=== PATIENT | female | born 1995 | race Two or more races ===

== ENCOUNTER 2024-01-23 17:55 | Outpatient (REF) | payer MEDICAID, SELFPAY ==
[2024-01-24 11:39] LABS: CT PCR DETECTED (Not Detect.); NG PCR NOT DETECTED (Not Detect.)
[2024-01-24 14:16] LABS: Bacterial Vaginosis PCR POSITIVE (Negative); Candida Group PCR NOT DETECTED (Not Detect); Candida glab krusei PCR NOT DETECTED (Not Detect); Trichomonas vaginalis PCR NOT DETECTED (Not Detect)
== END 2024-01-23 17:56 | disposition home or self-care (01) ==
LOC: HO.HHCLNP 17:55
PROVIDERS: Visit Provider Advanced Practice Midwife
DX: Z12.4 Encounter for screening for malignant neoplasm of cervix (principal); N89.8 Other specified noninflammatory disorders of vagina
CPT/HCPCS: 0352U; 87491; 87591; 88175

== ENCOUNTER 2024-03-05 09:31 | Outpatient (REF) | payer MEDICAID, SELFPAY ==
[2024-03-05 11:19] LABS: Hematocrit 40.5 % (37.0-47.0); Hemoglobin 13.9 g/dl (12.0-16.0); Mean Corpuscular HGB Conc 34.3 g/dl (31.0-35.0); Mean Corpuscular Hemoglobin 31.1 pg (27.0-33.0); Mean Corpuscular Volume 90.6 fL (80.0-98.0); Platelet Count 173 X10*3/uL (160-400); Red Blood Count 4.47 X10*6/uL (4.20-5.50); Red Cell Distribution Width 12.5 % (11.0-16.0); White Blood Count 5.2 X10*3/uL (4.8-10.8)
[2024-03-05 11:40] LABS: Estimated Average Glucose 100 mg/dL; Hemoglobin A1C 118.6176 umol/L; Hemoglobin A1c % 5.1 % (<6.0); Total Hemoglobin (HGBA1C) 3668.3933 umol/L
[2024-03-05 11:56] LABS: Alanine Aminotransferase 16 U/L (0-31); Albumin Level 4.2 g/dL (3.5-5.0); Alkaline Phosphatase 37 U/L (39-117); Anion Gap 11 (12-20); Aspartate Amino Transferase 18 U/L (5-31); Bilirubin Total 0.5 mg/dL (0.0-1.0); Blood Urea Nitrogen 8 mg/dL (9-16); Calcium 9.1 mg/dL (8.4-10.2); Carbon Dioxide 24 mmol/L (22-29); Chloride 105 mmol/L (96-108); Estimated Glomerular Filt Rate > 60; Glucose Random 86 mg/dL (60-115); Potassium 3.5 mmol/L (3.3-5.1); Sodium 136 mmol/L (135-145); Total Protein 7.5 g/dL (6.5-8.0)
[2024-03-05 12:16] LABS: TSH reflex Free T4 2.23 uIU/mL (0.32-4.0)
[2024-03-05 14:21] LABS: CT PCR NOT DETECTED (Not Detect.); NG PCR NOT DETECTED (Not Detect.)
[2024-03-06 09:11] LABS: HBS Num1 7.56 mIU/mL (0-7.99); HBc Num1 0.12 S/CO (0.00-0.79); HBsAGNum1 0.31 S/CO (0.00-0.99); HIV AB/AG Nonreactive (Nonreactive); HIV Num 1 0.05 S/CO (0.00-0.99); Hepatitis B Core Antibody Nonreactive (Nonreactive); Hepatitis B Surface Antigen Negative (Negative); ~HepC Num1 0.91 S/CO (0.00-0.79); ~Hepatitis B Surface Antibody NONREACTIVE (Nonreactive)
[2024-03-06 09:12] LABS: Syphilis Screen Nonreactive (Nonreactive)
[2024-03-06 10:07] LABS: ~HepC Num2 0.96; ~HepC Num3 0.93; ~Hepatitis C Antibody GRAYZONE (Nonreactive)
[2024-03-07 17:23] LABS: HCV Log PCR <1.18 NOT DETECTED Log IU/mL (NOT DETECTED); HepC Viral Load <15 NOT DETECTED IU/mL (NOT DETECTED)
== END 2024-03-05 09:32 | disposition home or self-care (01) ==
LOC: HO.HHCL 09:31
PROVIDERS: Visit Provider Student in an Organized Health Care Education/Training Program
DX: Z00.00 Encounter for general adult medical examination without abnormal findings (principal)
CPT/HCPCS: 36415; 80053; 83036; 84443; 85027; 86704; 86706; 86780; 86803; 87340; 87389; 87491; 87522; 87591

== ENCOUNTER 2024-03-08 12:41 | Outpatient (REF) | payer MEDICAID, SELFPAY ==
[2024-03-08 14:46] LABS: HCG Quantitative 125552 mIU/mL
== END 2024-03-08 12:42 | disposition home or self-care (01) ==
LOC: HO.HHCL 12:41
PROVIDERS: Visit Provider Student in an Organized Health Care Education/Training Program
DX: N92.6 Irregular menstruation, unspecified (principal)
CPT/HCPCS: 36415; 84702

== ENCOUNTER 2024-04-18 13:57 | Outpatient (REF) | payer MEDICAID, SELFPAY ==
--- NOTE | ~2024-04-18 | US_ITS ---
EXAMINATION: US , LIMITED CLINICAL INFORMATION: Spotting and COMPARISON: None available. TECHNIQUE: Limited ultrasound is performed for viability. FINDINGS: A gestational sac is present and a pole is identified. Normal heart beat of 161 bpm was present. The fetus was active during the course of the exam. The placenta was posterior without evidence of placenta previa. [place]-rump length was 6.98 cm corresponding to gestational age of 13 weeks 2 days. Maternal ovaries appeared normal measuring 2.2 x 1.5 x 2.3 cm on the right and 3.0 x 1.4 x 2.5 cm on the left. No free fluid seen. US/US OB limited IMPRESSION: Life fetus mean gestational age best estimated at 13 weeks 2 days. No evidence of placenta previa. Electronically signed by: Jayesh Pfeiffer MD 04/22/2024 12:16 PM TIMO CASTILLO
== END 2024-04-18 13:58 | disposition home or self-care (01) ==
LOC: HO.US 13:57
PROVIDERS: Visit Provider Advanced Practice Midwife
DX: O26.851 Spotting complicating pregnancy, first trimester (principal); Z3A.11 11 weeks gestation of pregnancy
CPT/HCPCS: 76815

== ENCOUNTER 2025-01-29 22:40 | Emergency (ER) | payer MEDICAID, SELFPAY ==
--- NOTE | ~2025-01-29 | XR_ITS ---
CLINICAL HISTORY: cough, shortness of breath 2 view chest x-ray Comparison: None provided Findings: The lungs are clear. Heart size is normal. No acute fracture. IMPRESSION: 1. No acute findings. This document has been electronically signed by: Brayden Briseno MD on 01/29/2025 23:53:41
[2025-01-29 22:44] VITALS: BP 119/73; PULSE 87; RESP 18; TEMP 36.7; O2SAT 97; BMI 26.5
[2025-01-29 23:29] VITALS: BP 113/86; PULSE 79; RESP 16; O2SAT 100
[2025-01-29 23:47] LABS: Resp Syncy Virus RNA Qual PCR NEGATIVE (Negative); SARS COV2 PCR INHOUSE NEGATIVE (Negative)
--- NOTE | 2025-01-29 23:58 | ED.SOB ---
HPI - SOB/Dyspnea General Chief Complaint: Dyspnea Stated Complaint: sob, cold symptoms Time Seen by Provider: 01/29/25 23:42 Source: patient and aerial photograph interpreter Mode of arrival: ambulatory Limitations: no limitations History of Present Illness ED Provider: DR. Onofre HPI Narrative: This is a 29-year-old female history of asthma came in for evaluation of shortness of breath, + dry cough, sore throat, stopped and congested nose unable to breathe from her nose only from her mouth, no fever, no chills, no recent travel, no lower extremity swelling or tenderness, no exposure to a sick contacts. Patient with history of asthma, no history of tobacco smoking. Related Data Previous Rx's ?Medication ?Instructions ?Recorded albuterol sulfate 90 mcg/actuation 2 puff inhalation Q4-6H PRN 01/30/25 aerosol inhaler (Ventolin HFA) shortness of breath or wheezing #8.5 grams azithromycin 250 mg tablet See Rx Instructions PO .COMPLEX #6 01/30/25 (Zithromax Z-Skyler) tabs prednisone 20 mg tablet 20 mg PO BID #10 tabs 01/30/25 Allergies Allergy/AdvReac Type Severity Reaction Status Date / Time No Known Allergies Allergy Verified 01/29/25 22:52 Review of Systems Review of Systems: All other systems are reviewed and are negative Constitutional: Reports as per HPI and Reports no additional constitutional complaints Eyes: Reports as per HPI and Reports no additional eye complaints Reports system reviewed and no additional complaints, except as documented Cardiovascular: Reports as per HPI and Reports no additional cardiovascular complaints Respiratory: Reports as per HPI and Reports no additional respiratory complaints Gastrointestinal: Reports as per HPI and Reports no additional gastrointestinal complaints Genitourinary: Reports no additional female genitourinary complaints Musculoskeletal: Reports no additional musculoskeletal complaints Skin/Breast: Reports system reviewed and no additional complaints, except as docu Psychiatric: Reports no additional psychiatric complaints Endocrine: Reports no additional endocrine complaints Hematologic/Lymphatic: Reports no additional hematologic/lymphatic complaints Allergic/Immunologic: Reports no additional allergic/immunologic complaints Reports system reviewed and no additional complaints, except as documented and Reports Abnormal speech present [facility] Social History Social History Smoked in Last 30 Days: No Use of substances other than those prescribed or required for medical reasons: No Patient : No Physical Exam Vital Signs: Vital Signs: Last Vital Signs Temp 98.1 F 01/29/25 22:44 Pulse 70 01/30/25 00:18 Resp 20 01/30/25 00:18 BP 113/86 01/29/25 23:29 Pulse Ox 100 01/29/25 23:29 O2 Del Method Room Air 01/29/25 23:29 BMI result Body Mass Index 26.5 Vital signs have been reviewed and appear to be correct. Blood pressure elevated. Heart rate normal. Respiratory rate normal. Temperature normal. Oxygen saturation normal. Appearance: Alert. Oriented X3. No acute distress. Head: Normal external exam. Normocephalic. Atraumatic. No Guerrier signs noted. No raccoon eyes noted Eyes: PERRLA. EOMI. Conjunctiva and sclera normal. Eyelids normal. ENT: TM's Normal. Pharynx normal. Uvula midline. Moist mucous membranes. No trismus noted. No drooling noted. No muffled voice noted. Neck: Normal inspection. Neck supple. FROM. No adenopathy. Thyroid Normal. No meningeal signs. No neck mass noted. CVS: Normal heart rate and rhythm. Heart sound normal. No murmurs noted. Pulses normal throughout. Respiratory: No respiratory distress. Painless inspiration. Decreased breathing sounds bilaterally, mild diffuse expiratory wheezing with prolonged expiration. No accessory muscle usage noted or decreased air movement noted. Abdomen: Soft and nontender. Bowel sounds normal in all 4 quadrants. No distention noted. No organomegaly noted. No visible injury noted. Back: No CVA tenderness. Full range of motion noted. Skin: Skin warm and dry. Normal skin color. Normal skin turgor. No rashes/lesions/lacerations noted. Extremities: No lower extremity edema. Extremities exhibit normal range of motion. Extremities nontender. Neuro: Oriented X 3. Cranial nerve exam: II-XII are grossly intact No motor deficit. No sensory deficit. Reflexes normal. Course Reevaluation(s) Reevaluation #1: Feels better after bronchodilator and prednisone in the ED. Negative chest x-ray for pneumonia. Time: 00:58 Medications Administered Discontinued Medications Generic Name Dose Route Start Last Admin Trade Name Freq PRN Reason Stop Dose Admin Albuterol Sulfate 2.5 mg/ 0 mg 01/30/25 00:18 01/30/25 00:19 Albuterol/Ipratropium 3 ml INHALE 01/30/25 00:19 5 dose ONCE ONE Administration Medical Decision Making Differential Diagnosis Differential Diagnoses: The differential diagnosis associated with the presentation includes (Pneumonia, pneumothorax, pleural effusion, asthma exacerbation, acute bronchitis, viral upper respiratory infection.) Admission/Observation Consideration of admission/observation: Escalation of care including admission/observation considered Lab Data MDM Lab Attestation statement: I reviewed the patient's lab results. Labs: Lab Results 01/29/25 Range/Units 23:05 Influenza Type A (PCR) NEGATIVE (Negative) Influenza Type B (PCR) NEGATIVE (Negative) RSV RNA Qual (PCR) NEGATIVE (Negative) SARS-CoV-2 RNA (RT-PCR) NEGATIVE (Negative) Independent Interpretation I performed an independent interpretation of an: Plain X-Ray (Chest: No acute findings.) Radiology Impression Discussion of test interpretation with radiology: I have reviewed the radiologist's reading. Discharge Plan Discharge Clinical Impression: Asthma with exacerbation, Acute bronchitis Patient Disposition: Home, Self-Care Instructions: Acute Bronchitis (ED) Prescriptions: New albuterol sulfate [Ventolin HFA] 90 mcg/actuation HFA aerosol inhaler 2 puff inhalation Q4-6H PRN (Reason: shortness of breath or wheezing) Qty: 8.5 0RF prednisone 20 mg tablet 20 mg PO BID Qty: 10 0RF azithromycin [Zithromax Z-Skyler] 250 mg tablet See Rx Instructions .ROUTE .COMPLEX Qty: 6 0RF Rx Instructions: For 250 mg dose pack: take 500 mg today (day 1), then 250 mg for 4 days (days 2-5) Print Language: Bulgarian
[2025-01-30 00:18] VITALS: PULSE 70; RESP 20; O2SAT 100
[2025-01-30] MEDS: Albuterol Sulfate 2.5 MG, Albuterol/Iprat 2.5/0.5MG 3 ML 3 ML INHALE (00:19)
--- OUTSIDE RECORDS SUMMARY | 2025-01-30 01:13 | XMS_ITS ---
Author Organization [email or web address] Address [address] [place] [address] [address] [place] [address] Care Team Providers Care [employer] Name Role Phone Aline Neville MD Primary Care Pro vider C3 CM High Risk Maternity Status:Enrolled (Active) Start date:07/17/2024 Enrollment date:08/13/2024 Enrollment reason:Risk Strat Overview HRM- Risk Strat Case Team Name Relationship Phone Mily Koenig(Responsible Staff) Registered Nurse [phone] Continued Care and Services Coordination
--- OUTSIDE RECORDS SUMMARY | 2025-01-30 01:13 | XMS_ITS | Clinical Summary ---
Author Organization [employer] Address [address] [facility] 7t [place] [address] Care Team Providers Care Community Pharmacist Name Role Phone Aline Neville MD Primary Care Pro vider Allergies No known active allergies Medications * This document contains information received from the source organization and may not represent a complete record from that organization. Vit-Fe Fumarate-FA ( Plus) 27-1 MG tablet One tablet by mouth daily 90 tablet 1 03/08/2024 Active psyllium (Metamucil Smooth Texture) 58.6 % powder Take 5.12 g (3 g of fiber) by mouth 2 times daily. 283 g 1 03/08/2024 Active sucralfate (Carafate) 1 g tablet TAKE 1 TABLET BY MOUTH FOUR TIMES DAILY, BEFORE BREAKFAST, BEFORE LUNCH, BEFORE SUPPER AND AT BEDTIME 30 tablet 1 03/18/2024 Active pyridoxine (Vitamin B-6) 25 MG tablet One tablet every 8 hours as needed for nausea/vomit ing 90 tablet 04/18/2024 Active Hospital, Clinic, or Other Facility Administered Medication Ordered Dose Route Frequency Start Date End Date Status lidocaine (Xylocaine) 2 % injection 20 mgIndications:Benign nevus 20 mg IJ Once 04/26/2024 Active Active Problems Problem Noted Date Diagnosed Date 03/10/2024 Chlamydia infection 03/10/2024 Acculturation difficulty 01/16/2024 Lives in homeless intermediate 01/16/2024 Preventative health care 01/06/2024 Skin lesions 01/06/2024 Resolved Problems Problem Noted Date Diagnosed Date Resolved Date Adjustment disorder with depressed mood 01/06/2024 01/16/2024 Encounters Date Type Department Care Team Description 01/24/2025 Patient Outreach [address] [address] Aline Neville MD Care Coordination ([facility]/RENÉ Pan TC#1- Follow up call-LVM) 01/22/2025 Telephone [facility] [address] [place] [id number] Eden Le [place] 01/10/2025 Patient Outreach [address] [address] Aline Neville MD Care Coordination (C3/RENÉ Pan TC- Follow up call) 12/27/2024 Patient Outreach [address] [address] Aline Neville MD Care Management ([facility] TC #1-lvm) 12/26/2024 Patient Outreach [address] [address] Aline Neville MD Care Coordination ([facility]/LEONARD Cui#2- Follow up-LVM) 12/17/2024 Patient Outreach [address] [address] Aline Neville MD Care Coordination (C3/LEONARD Cui#1- Follow up call-LVM) 12/03/2024 Patient Outreach [address] [address] Aline Neville MD Care Coordination (C3/LEONARD Cui- Follow up call) 11/29/2024 Patient Outreach [address] [address] Aline Neville MD Care Management (C3 follow up call) 11/15/2024 Patient Outreach [address] [address] Aline Neville MD Care Coordination (C3ETHAN/LEONARD Cui- Follow up call) 11/08/2024 Patient Outreach [facility] [address] [place] [address] Aline Neville MD Care Management ([facility] TC #1-lvm) 11/06/2024 Patient Outreach [facility] [address] [place] [address] Aline Neville MD Care Coordination ([facility]/CHW LEONARD Jackson- Follow up call) from Last 3 Months Immunizations Immunization Administration Dates Next Due HPV 9-Valent 03/07/2024,02/05/2024 Tdap 01/05/2024 Family History Medical History Relation Name Comments Coronary artery disease Maternal Grandfather Relation Name Status Comments Maternal Grandfather Social History Tobacco Use Types Packs/Day Years [...] your housing situation today? I have rudy mehul 12/21/[address] you li [...] Access Q2 Not on file 01/01/2024 Comments No Sex and Gender Information Value Date Recorded Sex Assigned at Female 01/05/2024 10:51 AM EDT Legal Sex Female 3:31 PM EDT Gender Identity Female 01/05/2024 10:51 AM EDT Sexual Orientation Straight 01/05/2024 11 :07 AM EDT Last Filed Vital Signs Vital Sign Reading Time Taken Comments Blood Pressure 110/78 04/26/2024 9:26 AM EST Pulse 92 04/26/2024 9:26 AM EST Temperature 37.1 C (98.7 F) 04/26/2024 9:26 AM EST Respiratory Rate 14 04/26/2024 9:26 AM EST Oxygen Saturation 99% 04/18/2024 11:34 AM EST Inhaled Oxygen Concentration - - Weight 60.3 kg (133 lb) 04/26/2024 9:26 AM EST Height 165.1 cm (5' 5 ) 04/26/2024 9:26 AM EST Body Mass Index 22.13 04/26/2024 9:26 AM EST Plan of Treatment Health Maintenance Due Date Last Done Comments Dental Oral Exam 1996 Dental Prophylaxis 1996 Dental X-Ray: Bitewings 1996 Dental X-Ray: Full Mouth 1996 Disability Screening 1996 Family Planning (PISQ) 2011 Hepatitis B Vaccines (1 of 3 - 19+ 3-dose series) 2015 Pneumococcal Vaccine: Pediatrics (0 to 5 Years) and At-Risk Patients (6 to 49) Years (1 of 2 - PCV) 2015 HPV Vaccines (3 - 3-dose series) 08/05/2024 03/07/2024, 02/05/2024 COVID-19 Vaccine ( - 2023-2 5 season) 2024 Influenza Vaccine (#1) 2024 Tobacco Screening 04/18/2025 04/18/2024 SDOH Screening 07/19/2025 07/19/2024 Alcohol/Substance Use Screening 08/13/2025 08/13/2024 Depression Screening 10/23/2025 10/23/2024, 08/13/2024 Pap Smear 01/22/2027 01/23/2024 DTaP/Tdap/Td Vaccines (3 - T d or Tdap) 08/30/2034 08/30/2024, 01/05/2024 Zoster Vaccines (1 of 2) 2046 RSV Patients and Patients Aged 60 years or older (1 - 1-dose 75+ series) 2071 HIV Screening Completed 03/05/2024 Hepatitis C Screening Completed 03/05/2024 , 03/05/2024 HIB Vaccines Aged Out No longer eligi ble based on patient's age to complete this topic Hepatitis A Vaccines Aged Out No long er eligible based on patient's age to complete this topic IPV Vaccines Aged Out No longer eligi ble based on patient's age to complete this topic Meningococcal B Vaccine Aged Out No l onger eligible based on patient's age to complete this topic Meningococcal Vaccine Aged Out No john sahra eligible based on patient's age to complete this topic RSV under 20 months Aged Out No longe r eligible based on patient's age to complete this topic Rotavirus Vaccines Aged Out No longer eligible based on patient's age to complete this topic Procedures Procedure Name Priority Date/Time Associated Diagnosis Comments HEPATITIS C AB W/REFL TO HCV RNA, QN, PCR Routine 03/05/2024 9:35 AM EST Annual physical exam HIV 1/2 ANTIGEN/ANTIBODY, FOURTH GENERATION W/RFL Routine 03/05/2024 9:35 AM EST Annual physical exam [employer] PAP Routine 01/23/2024 11:13 AM EDT Cervical cancer screening from Last 3 Months or Most Recently Relevant to Health Maintenance Results * Hepatitis C Antibody with Reflex to HCV, RNA, Quantitative, Real-Time PCR (03/05/2024 9:35 AM EST) Hepatitis C Antibody GRAYZONE Nonreactive [facility] Comment:Antibodies to HCV ma y or may not be present. Suggest repeatanti-HCV in 4-6 weeks and/or HCV viral load if clinicallyindicated. Blood Venous blood specimen / Unknown 03/05/2024 9:35 AM EST 03/05/2024 11:22 AM EST us Aline Eddy MD LAB BLOOD ORDERAB LES Final Result Performing Organization Address [facility] Co de Phone Number [facility] [address] [place] [phone] * HIV-1/2 Antigen and Antibodies, Fourth Generation, with Reflexes (03/05/2024 9:35 AM EST) HIV AB/AG Nonreactive Nonreactive [facility] Comment:HIV-1 p24 Ag and/or HIV-1/HIV-2 Ab not detected.A test result that is nonreactive does not exclude thepossibility of exposure to or infection with HIV-1 and/orHIV-2. Nonreactive results in this assay for individualswith prior exposure to HIV-1 and/or HIV-2 may be due toantigen and antibody levels that are below the limit ofdetection of this assay.The [employer] HIV Ag/Ab Combo assay result andsupplemental assay results should be interpreted inconjunction with the patient's clinical presentation,history and other laboratory results. If the results areinconsistent with clinical evidence, additional testing issuggested to confirm the result. Blood Venous blood specimen / Unknown 03/05/2024 9:35 AM EST 03/05/2024 11:22 AM EST us Aline Eddy MD LAB BLOOD ORDERAB LES Final Result Performing Organization Address [facility] Co de Phone Number [facility] [address] [place] [address] [phone] * Pap Smear (01/23/2024 11:13 AM EDT) Pathologist [facility] SOURCE: SEE NOTE [facility] Comment:None given Report Status: TNP [facility] Clinical Information: SEE NOTE [facility] Comment:None given LMP: SEE NOTE [facility] Comment:NONE GIVEN Prev. PAP: SEE NOTE [facility] Comment:NONE GIVEN Prev. BX: SEE NOTE [facility] Comment:NONE GIVEN Statement Of Adequacy: SEE NOTE [facility] Comment:Satisfactory for dimitri luation.Endocervical/transformation zone componentpresent. General Categorization: [facility] Interpretation/Result: SEE NOTE [facility] Comment:Cytology Results: Ne gative for intraepitheliallesion or malignancy. Cytology Comment SEE NOTE [facility] Comment:This Pap test has be en evaluated with computerassisted technology. Automation Tender: SEE NOTE [facility] Comment:YP, CT(ASCP)CT scree edith location: [place] [address] Review Automation Tender: [facility] Pathologist [facility] PAP Infection SEE NOTE [facility] Comment:Shift in vaginal jojo ra suggestive of bacterialvaginosis. See Note SEE NOTE [facility] Comment:EXPLANATORY NOTE:The Pap is a screening test for cervical cancer. It isnot a diagnostic test and is subject to false negativeand false positive results. It is most reliable when asatisfactory sample, regularly obtained, is submittedwith relevant clinical findings and history, and whenthe Pap result is evaluated along with historic andcurrent clinical information.THIS TEST WAS PERFORMED AT:[facility] [address] [id number] HAGEN MD Pap Vial Vaginal structure / Unknown 01/23/2024 11:13 AM EDT 01/23/2024 5:58 PM EDT Narrative [facility] - 01/26/2024 12:50 PM EDT SEE SCANNED RESULTS IN EMR us Kathya Nguyen CNM LAB PATHOLOGY ORDERABLES Final Result [facility] [address] [place] [phone] [phone] from Last 3 Months or Most Recently Relevant to Health Maintenance Insurance [facility] [address] [place] [address] [facility] AD[facility] Care Teams Community Pharmacist Relationship Specialty Start Date End Date Aline Neville MD [address] [place] [phone] PCP - General Internal Medicine 01/23/24
--- OUTSIDE RECORDS SUMMARY | 2025-01-30 01:13 | XMS_ITS ---
Author Organization [employer] Address [address] [place] [address] 7t [place] [address] Care Team Providers Care Data Manager Name Role Phone Aline Neville MD Primary Care Pro vider C3 CM Maternal Advocate Status:Enrolled (Active) Start date:07/17/2024 Enrollment date:07/17/2024 Enrollment reason:Risk Strat Overview HRM risk Start. due 10/17/24 Case Team Name Relationship Phone Cristo Pan(Responsible Staff) [phone] Continued Care and Services Coordination
[2025-01-30 01:53] VITALS: BP 117/98; PULSE 93; RESP 17; TEMP 36.7; O2SAT 97
== END 2025-01-30 01:57 | disposition home or self-care (01) ==
PROVIDERS: Emergency Provider Emergency Medicine
DX: J20.9 Acute bronchitis, unspecified (principal); J45.901 Unspecified asthma with (acute) exacerbation
CPT/HCPCS: 71046; 87637; 94640; 99284

== ENCOUNTER → 2025-01-29 23:00 | Outpatient (BNV) | payer MEDICAID, SELFPAY | PROVIDERS: Emergency Provider Emergency Medicine; Visit Provider Radiology Diagnostic Radiology | DX: R05.9 Cough, unspecified (principal); R06.02 Shortness of breath | CPT/HCPCS: 71046 ==

== ENCOUNTER 2025-04-16 14:24 | Outpatient (REF) | payer MEDICAID, SELFPAY ==
--- OUTSIDE RECORDS SUMMARY | 2024-03-08 11:30 | XMS_ITS | Encounter Summary ---
Author Organization [employer] Address [address] [place] [address] Care Team Providers Care Pulmonology Technician Name Role Phone Aline Neville MD Primary Care Pro vider Reason for Referral * Consultation (Routine) - Closed Specialty Diagnoses / Procedures Referred By Contac t Referred To Contact Obstetrics and Gynecology Diagnoses Less than 8 weeks gestation of Aline Neville MD [address] [place] [id number] Phone: tel: fax: [address] Phone: tel: fax: Referral ID Status Reason Start Date Expiration Date V isits Requested Visits Authorized [id number] Closed Specialty Services Required 04/18/2024 04/18/2025 30 30 Reason for Visit * Reason Comments Follow-up labs Encounter Details Date Type Department Care Team (Late st Contact Info) Description 03/08/2024 11:30 AM EST Office Visit [facility] MEDICINE [address] [place] [phone] Aline Neville MD [address] [place] [phone] Less than 8 weeks gestation of (Primary Dx); Missed period; Preventative health care; Skin lesions; Chlamydia infection Social History Tobacco Use Types Packs/Day Years Used Date Smoking Tobacco: Never Smokeless Tobacco: Never Tobacco Cessation:Counseling Given: Not Answered Alcohol Use Standard Drinks/Week Comments Not Currently 0 (1 standard drink = 0.6 oz pur e alcohol) social Depression Answer Date Recorded Patient Health Questionnaire-9 Score 0 08/13/2024 Patient Health Questionnaire-9 Score 0 08/13/2024 Last PHQ-9: Questionnaire Data Not on file 0 08/13/2024 Housing Stability Answer Date Recorded What is your housing situation today? I have rudy carver 12/21/[address] you li ve. Do you have problems with any of the following? None of the above 12/21/2023 Food Insecurity Answer Date Recorded Within the past 12 months, y ou worried that your food would run out before you got money to buy more: Never True 07/19/2024 Within the past 12 months,th e food you bought just didn't last and you didn't have enough money to get more: Never True Transportation Answer Date Recorded In the past 12 months, has l ack of transportation kept you from medical appts, meetings, work or from getting things needed for daily living? Yes, it has kept me from medical appointments or getting medications. 07/17/2024 Utilities Answer Date Recorded In the past 12 months, has t he electric, gas, oil or water company threatened to shut off services in your home? No 12/21/2023 Depression Answer Date Recorded Patient Health Questionnaire-2 Score 0 08/13/2024 Internet Access Answer Date Recorded Internet Access Q1 Yes 01/01/2024 Internet Access Q2 Not on file 01/01/2024 Comments Yes Sex and Gender Information Value Date Recorded Sex Assigned at Female 01/05/2024 10:51 AM EDT Legal Sex Female 3:31 PM EDT Gender Identity Female 01/05/2024 10:51 AM EDT Sexual Orientation Straight 01/05/2024 11 :07 AM EDT documented as of this encounter Last Filed Vital Signs Vital Sign Reading Time Taken Comments Blood Pressure 108/66 03/08/2024 11:49 AM EST Pulse 70 03/08/2024 11:49 AM EST Temperature 36.6 C (97.8 F) 03/08/2024 11:49 AM EST Respiratory Rate 18 03/08/2024 11:49 AM EST Oxygen Saturation 100% 03/08/2024 11:49 AM EST Inhaled Oxygen Concentration - - Weight 60.8 kg (134 lb) 03/08/2024 11:49 AM EST Height 165.1 cm (5' 5 ) 03/08/2024 11:49 AM EST Body Mass Index 22.3 03/08/2024 11:49 AM EST documented in this encounter Functional Status * Over the past 2 weeks, how often have you been bothered by any of the following problems? Question Answer Date of Assessment Author Patient Health Questionnaire -2 Score 0 08/13/2024 10:36 AM Bandar Fernandez * Little interest or pleasure in doing things Answer Date of Assessment Author Not at all 08/13/2024 10:36 AM Mily Aguilar i * Feeling down, depressed, or hopeless Answer Date of Assessment Author Not at all 08/13/2024 10:36 AM Mily Aguilar i * Trouble falling or staying asleep, or sleeping too much Answer Date of Assessment Author Not at all 08/13/2024 10:36 AM Mily Aguilar i * Feeling tired or having little energy Answer Date of Assessment Author Not at all 08/13/2024 10:36 AM Mily Aguilar i * Poor appetite or overeating Answer Date of Assessment Author Not at all 08/13/2024 10:36 AM Mily Aguilar i * Feeling bad about yourself - or that you are a failure or have let yourself or your family down Answer Date of Assessment Author Not at all 08/13/2024 10:36 AM Mily Aguilar i * Trouble concentrating on things, such as reading the newspaper or watching television Answer Date of Assessment Author Not at all 08/13/2024 10:36 AM Mily Aguilar i * Moving or speaking so slowly that other people could have noticed? Or the opposite - being so fidgety or restless that you have been moving around a lot more than usual. Answer Date of Assessment Author Not at all 08/13/2024 10:36 AM Mily Aguilar i * Thoughts that you would be better off or hurting yourself in some way Answer Date of Assessment Author Not at all 08/13/2024 10:36 AM Mily Aguilar i * Patient Health Questionnaire-9 Score Answer Date of Assessment Author 0 08/13/2024 10:36 AM Mily Aguilar i * Over the last 2 weeks, how often have you been bothered by any of the following problems? Question Answer Date of Assessment Author Feeling nervous, anxious, or on edge 0 08/13/2024 10:36 AM Bandar Fernandez Not being able to stop or co ntrol worrying 0 08/13/2024 10:36 AM Bandar Fernandez Worrying too much about diff erent things 0 08/13/2024 10:36 AM Bandar Fernandez Trouble relaxing 0 08/13/2024 10:36 AM Mily Fernandez Being so restless that it is hard to sit still 0 08/13/2024 10:36 AM Bandar Fernandez Becoming easily annoyed or irritable 0 08/13/2024 10:36 AM Bandar Fernandez Feeling afraid as if somethi ng awful might happen 0 08/13/2024 10:36 AM Bandar Fernandez BENJI-7 Total Score 0 08/13/2024 10:36 AM Mily Fernandez documented as of this encounter Progress Notes * Aline Eddy MD - 03/08/2024 11:30 AM EST Subjective Patient ID: Nury Roach is a 28 y.o. female who presents for Follow-up (labs). HPI 28 y o F from [facility] ( Lives in [place] for <1 [place] since 03/2023) w PMX of recently tx chlamydia infection -Comes to f labs,reports for last week Nausea, [place], dizziness,no diarrhea symptoms , here today urine preg test is positive , denies any vaginal spotting nor symptoms. -reports on and off constipation ------ -LMP: 01/31/2024 ------ Assessment and Plan: Health care maintenance -Annual exam done 12/2023 -contraception: none-was hoping to get -already on prenatals -Pap smear: 01/23/2024 Neg w J R here -vaccines: s/p Tdap 01/05/2024 ,COVID 19 x2 per pt ,HPV x2(Last dose yesterday) Flu and COVID 19 vaccine offered today but refused for now , Hep B not immune states interested in series but wants to hold for now-advised to get at vaccine clinic Adjustment Dx PHQ9: 10 ,BENJI 0 no SI, no hallucinations , no abhilash Triggered since moved to [place] a year ago -BH seen already at last apt -states dont want outpt tx -feels better now-will monitor Skin lesion Born w a nevus in her vulva causing discomfort pt with benign appearing nevus in left labia causing discomfort referred to screener and blender --has apt04/26/24 Chlamydia infection -Done for screening chlamydia was + in 01/23/2024 now s/p tx w Doxy x 7 days -BV + s/p tx w metro gel -then repeated urine ch/gn 03/05/2024 was neg , hep C grayzone w UD VL Pt denies any symptoms ,states to be in monogamous relationship,states partner as well went to check up after her dx -discussed today about PREP options -ok in but wants to hold for now -advised condom use 1st trimester 5 weeks 2 days calc by LMP -HCG blood ordered today -will inform result to pt -referred to PHOTOCOPIER TECHNICIAN today -continue prenatals -alarm signs and symptoms discussed -sucralfate PRN for burning sensation -metamucil prn for constipation HPV x2(Last dose yesterday) -discussed w pt about HPV vaccination -received her 2nd dose yesterday while pt was not aware of ---- I did discussed w pt at her last apt that if she was in doubt or late w periods to check prior vaccine -not done --reviewed w pt today about vaccine during is not recommended because of limited information about safety; however, data from inadvertent use in this setting are increasingly available and reassuring. Thus, if a woman is found to be after initiating the vaccination series, she can be reassured that available evidence does not indicate any increase in risk of adverse outcome with vaccination. --explained pt to not get 3rd dose ofvaccine while or Review of Systems Constitutional: Negative. 1 weeks of nausea,dizziness, reports constipation ,GERD Objective BP 108/66 (BP Location: Left arm, Patient Position: Sitting, BP Cuff Size: Adult) Pulse 70 Temp97.8 ??F (36.6 ??C) (Temporal) Resp 18 Ht 5' 5 (1.651 m) Wt 134 lb (60.8 kg) LMP 01/30/2024 (Approximate) SpO2 100% BMI 22.30 kg/m?? Physical Exam Constitutional: General: She is not in acute distress. Appearance: Normal appearance. Neurological: Mental Status: She is alert. Assessment/Plan Problem List Items Addressed This Visit Preventative health care Skin lesions - Primary Relevant Orders Referral to Obstetrics / Gynecology Chlamydia infection Other Visit Diagnoses Missed period Relevant Orders POCT Urine (Completed) hCG, Total, Quantitative (Completed) documented in this encounter Miscellaneous Notes * Result Encounter Note - Aline Eddy MD - 03/08/2024 11:30 AM EST Please inform pt blood test confirms positive -plan as rec at previous apt thanks documented in this encounter Plan of Treatment Scheduled Referrals Name Type Priority Associated Diagnoses Order Schedule Referral to Obstetrics / Gynecology Outpatient Referral Routine Less than 8 weeks gestation of Expected: 03/08/2024 (Approximate), Expires: 03/08/2025 documented as of this encounter Procedures Procedure Name Priority Date/Time Associated Diagnosis Comments HCG, TOTAL, QN Routine 03/08/2024 12:45 PM EST Missed period POCT , URINE Routine 03/08/2024 12:01 PM EST Missed period documented in this encounter Results * hCG, Total, Quantitative (03/08/2024 12:45 PM EST) HCG Quantitative 125,552 mIU/mL [facility] Comment:Weeks post LMP Appro ximate hCG(Last Menstrual Period) Range (mIU/ml)3 - 4 weeks 9 - 1304 - 5 weeks 75 - 2,6005 - 6 weeks 850 - 20,8006 - 7 weeks 4000 - 100,2007 - 12 weeks 11,500 - 289,51246 - 16 weeks 18,300 - 137,20149 - 29 weeks (2nd trimester) 1,400 - 53,43445 - 41 weeks (3rd trimester) 940 - 60,000The Feliciano B- hCG assay is used for the early detection ofpregnancy; it cannot be used to diagnose any conditionunrelated to . If a B-hCG level is not supportedby the clinical evidence, results should be confirmed by analternative method (qualitative urine hCG, for example). Blood Venous blood specimen / Unknown 03/08/2024 12:45 PM EST 03/08/2024 1:09 PM EST us Aline Eddy MD LAB BLOOD ORDERAB LES Final Result Performing Organization Address City/State/[facility] Co de Phone Number [facility] [address] [place] [phone] * (ABNORMAL) POCT Urine (03/08/2024 12:01 PM EST) Preg Test, Ur Positive (A) Negative, Indeterminate, None Detected, Invalid, Specimen unsatisfactory for evaluation, Weakly Positive QC Media Lot # [id number] Lot# Expiration Date 11302,[id number] 25 Urine 03/08/2024 12:0 1 PM EST us Aline Eddy MD POINT OF CARE NNEKA T ENTER/EDIT ORDERABLES Final Result documented in this encounter Visit Diagnoses Diagnosis Less than 8 weeks gestation of - Primary Missed period Preventative health care Routine general medical examination at a health care facility Skin lesions Chlamydia infection Unspecified chlamydial infection, in conditions classified elsewhere and of unspecified site documented in this encounter Additional Health Concerns Assessment Noted Time PHQ-9 Depression Total Score: 10 024 11:01 AM EDT documented as of this encounter Care Teams Pulmonology Technician Relationship Specialty Start Date End Date Aline Neville MD [address] [place] [address] [place] [id number] PCP - General Internal Medicine 01/23/24 documented as of this encounter
--- OUTSIDE RECORDS SUMMARY | 2025-04-16 09:15 | XMS_ITS | Encounter Summary ---
Author Organization [employer] Address [address] [facility] 7 [place] [address] Care Team Providers Care Automatic Casting Machine Operator Name Role Phone Aline Neville MD Primary Care Pro vider Reason for Visit * Reason Comments Follow-up Encounter Details Date Type Department Care Team ([facility] Contact Info) Description 04/16/2025 9:15 AM EST Office Visit [facility] [address] [place], [place] [phone] Kathya Nguyen CNM [address] [place] [address] Lupe vaginitis (Primary Dx); Screening examination for venereal disease Social History Tobacco Use Types Packs/Day Years [...] is your housing situation today? I have rudyaleksandra carver 12/21/[address] you [...] Q2 Not on file 01/01/2024 Comments No Intention Date Recorded Ambivalent about becoming (find ing) 04/16/2025 Sex and Gender Information Value Date Recorded Sex Assigned at Female 01/05/2024 10:51 AM EDT Legal Sex Female 3:31 PM EDT Gender Identity Female 01/05/2024 10:51 AM EDT Sexual Orientation Straight 01/05/2024 11 :07 AM EDT documented as of this encounter Last Filed Vital Signs Vital Sign Reading Time Taken Comments Blood Pressure 102/68 04/16/2025 9:29 AM EST Pulse 75 04/16/2025 9:29 AM EST Temperature 36.6 C (97.9 F) 04/16/2025 9:29 AM EST Respiratory Rate 14 04/16/2025 9:29 AM EST Oxygen Saturation 98% 04/16/2025 9:29 AM EST Inhaled Oxygen Concentration - - Weight 68.9 kg (152 lb) 04/16/2025 9:29 AM EST Height - - Body Mass Index 25.29 04/26/2024 9:26 AM EST documented in this encounter Progress Notes * Kathya Nguyen CNM - 04/16/2025 9:15 AM EST Subjective Patient ID: Nury Roach is a 29 y.o. female who presents for [employer] visit Here for routine [employer]ER visit. 11 wks at last visit with me in 03/2024. SVB 10/21/2024, baby boy. and bottle feeding. 1 AMAB partner x 6 y, no safety concerns. Declines control at this time. Thinking about getting in the next year. Notes vaginal itching and discharge for past month. No new products. Treated for chlamydia and bacterial vaginosis 12/2023. Retest for Gonorrhea/Chlamydia neg 03/2024. Pap NIL 12/2023. HIV, syphilis, Hep C neg 03/2024, Hep B nonimmune. Due for 3rd HPV vaccine. Monthlymenses x 4 days, no heavy flow, occasional cramping. Would like pelvic and breast exam today. Review of Systems Genitourinary: Positive for vaginal discharge. Negative for dyspareunia, dysuria, frequency, genital sores, hematuria, menstrual problem, pelvic pain, urgency, vaginal bleeding and vaginal pain. No abnormal pap, no abnormal bleeding, no breast pain, no breast mass, no nipple discharge Objective BP 102/68 (BP Location: Left arm, Patient Position: Sitting, BP Cuff Size: Adult) Pulse 75 Temp97.9 ??F (36.6 ??C) (Oral) Resp 14 Wt 152 lb (68.9 kg) LMP 04/15/2025 (Approximate) SpO2 98% Yes BMI 25.29 kg/m?? Physical Exam Physician/Allergy/Immunology present: declines oven operator. Constitutional: Appearance: Normal appearance. Chest: Breasts: Right: Normal. No swelling, bleeding, inverted nipple, mass, nipple discharge, skin change or tenderness. Left: Normal. No swelling, bleeding, inverted nipple, mass, nipple discharge, skin change or tenderness. Genitourinary: General: Normal vulva. Labia: Right: No rash, tenderness, lesion or injury. Left: No rash, tenderness, lesion or injury. Vagina: Normal. No signs of injury and foreign body. No vaginal discharge, erythema, tenderness, bleeding or lesions. Cervix: No cervical motion tenderness, discharge, friability, lesion, erythema, cervical bleeding or eversion. Uterus: Normal. Not enlarged and not tender. Adnexa: Right adnexa normal and left adnexa normal. Right: No mass, tenderness or fullness. Left: No mass, tenderness or fullness. Rectum: External hemorrhoid present. Lymphadenopathy: Upper Body: Right upper body: No supraclavicular or axillary adenopathy. Left upper body: No supraclavicular or axillary adenopathy. Neurological: Mental Status: She is alert. Psychiatric: Mood and Affect: Mood normal. Behavior: Behavior normal. Assessment/Plan Diagnoses and all orders for this visit: Lupe vaginitis - POCT fern test, vaginal fluid manually resulted For clotrimazole as prescribed. Report worsening/persistent symptoms. Screening examination for venereal disease - Chlamydia/N. Gonorrhoeae RNA, TMA, Vagina Agrees to repeat Gonorrhea/Chlamydia today. Other orders - clotrimazole (Lotrimin) 1 % vaginal cream; Insert 1 applicator into the vagina in the evening for7 days. - Vit-Fe Fumarate-FA ( Plus) 27-1 MG tablet; One tablet by mouth daily rx'd as she is thinking about getting in the next year. Report missed menses. Mayreturn any time if interested in control. Reviewed due for HPV 3 and Hep B series. May get at pharmacy. Pap 12/2026. documented in this encounter Plan of Treatment Not on file documented as of this encounter Procedures Procedure Name Priority Date/Time Associated Diagnosis Comments CHLAMYDIA/N. GONORRHOEAE RNA, TMA, UROGENITAL Routine 04/16/2025 10:10 AM EST Screening examination for venereal disease POCT WET MOUNT/ANDRADE Routine 04/16/2025 10 :04 AM EST Lupe vaginitis documented in this encounter Results * Chlamydia/N. Gonorrhoeae RNA, TMA, Vagina (04/16/2025 10:10 AM EST) CT PCR NOT DETECTED Not Detect. [facility] Comment:A not detected test result does not exclude the possibilityof infection because test results can be affected byimproper specimen collection, concurrent antibiotic therapy,or the number of organisms in the specimen which may bebelow the sensitivity of the test. As with many diagnostictests, results from the Xpert CT/NG assay should beinterpreted in conjunction with other laboratory andclinical data available to the clinician.Xpert CT/NG performance has not been evaluated in patientsless than 14 years of age. The assay should not be used forthe evaluationof suspected sexual abuse or for other medico-legalindications. Additional testing is recommended in anycircumstance when false positive or false negative resultscould lead to adverse medical, social or psychologicalconsequences. NG PCR NOT DETECTED Not Detect. [facility] Comment:A not detected test result does not exclude the possibilityof infection because test results can be affected byimproper specimen collection, concurrent antibiotic therapy,or the number of organisms in the specimen which may bebelow the sensitivity of the test. As with many diagnostictests, results from the Xpert CT/NG assay should beinterpreted in conjunction with other laboratory andclinical data available to the clinician.Xpert CT/NG performance has not been evaluated in patientsless than 14 years of age. The assay should not be used forthe evaluationof suspected sexual abuse or for other medico-legalindications. Additional testing is recommended in anycircumstance when false positive or false negative resultscould lead to adverse medical, social or psychologicalconsequences. Swab Vaginal structure / Unknown 04/16/2025 10:10 AM EST 04/16/2025 2:25 PM EST Kathya Nguyen CNM LAB MICROBIOLOGY - GENERA L ORDERABLES Final Result [facility] [address] [place] [phone] * POCT fern test, vaginal fluid manually resulted (04/16/2025 10:04 AM EST) [facility] Prep Positive Comment:pH 4.5, neg whiff, n eg clue, neg trich, few wbc, pos hyphae Vaginal Fluid Vaginal structure / Unknown 04/16/2025 10:04 AM EST Kathya [facility] POINT OF CARE TEST ENTER/ EDIT ORDERABLES Final Result documented in this encounter Visit Diagnoses Diagnosis Lupe vaginitis- Primary Candidiasis of vulva and vagina Screening examination for venereal disease documented in this encounter Additional Health Concerns Assessment Noted Time PHQ-9 Depression Total Score: 0 08/14/19 25 10:36 AM EDT documented as of this encounter Care Teams Automatic Casting Machine Operator Relationship Specialty Start Date End Date Aline Neville MD [address] [place] [phone] PCP - General Internal Medicine 01/23/24 documented as of this encounter
[2025-04-16 16:20] LABS: CT PCR NOT DETECTED (Not Detect.); NG PCR NOT DETECTED (Not Detect.)
--- OUTSIDE RECORDS SUMMARY | 2025-04-16 19:14 | XMS_ITS | Encounter Summary ---
Author Organization [employer] Address [address] [facility] [address]t [place] [address] Care Team Providers Care Employment Agency Manager Name Role Phone Aline Neville MD Primary Care Pro vider Encounter Details Date Type Department Care Team (Latest Contact Info) Description 04/16/2025 Travel Social History Tobacco Use Types Packs/Day Years Used Date Smoking Tobacco: Never Smokeless Tobacco: Never Alcohol Use Standard Drinks/Week Comments Not Currently [...] AM EDT documented as of this encounter Plan of Treatment Not on file documented as of this encounter Visit Diagnoses Not on filedocumented in this encounter Additional Health Concerns Assessment Noted Time PHQ-9 Depression Total Score: 0 08/14/19 25 10:36 AM EDT documented as of this encounter Care Teams Employment Agency Manager Relationship Specialty Start Date End Date Aline Neville MD [address] [place] [phone] PCP - General Internal Medicine 01/23/24 documented as of this encounter
--- OUTSIDE RECORDS SUMMARY | 2025-04-16 19:14 | XMS_ITS | Encounter Summary ---
Author Organization [employer] Address [address] [place] [address] Care Team Providers Care Marine Firefighter Name Role Phone Aline Neville MD Primary Care Pro vider Reason for Visit * Reason Onset Date Comments pt1 04/09/2025 Encounter Details Date Type Department Care Team ([facility] st Contact Info) Description 04/09/2025 Telephone [facility] [address] [place], [place] [phone] Aline Neville MD [address] [place], [place] [phone] pt1 Social History Tobacco Use Types Packs/Day Years [...] your housing situation today? I have rudy sing 12/21/[address] you li [...] AM EDT documented as of this encounter Miscellaneous Notes * Telephone Encounter - Nancy Senior - 04/09/2025 12:36 PM EST Patient calling requesting PT1 Home Address verified: Y/N: Yes Provider name or facility name: [address] [place] [address] Escort needed: Y/N: No Do you have a wheelchair: Y/N: No If yes- Manual or electric: Visits: 2x documented in this encounter Plan of Treatment Not on file documented as of this encounter Visit Diagnoses Not on filedocumented in this encounter Additional Health Concerns Assessment Noted Time PHQ-9 Depression Total Score: 0 08/14/19 25 10:36 AM EDT documented as of this encounter Care Teams Marine Firefighter Relationship Specialty Start Date End Date Aline Neville MD [address] [place] [phone] PCP - General Internal Medicine 01/23/24 documented as of this encounter
--- OUTSIDE RECORDS SUMMARY | 2025-04-16 19:14 | XMS_ITS | Encounter Summary ---
Author Organization [employer] Address [address] [facility] [address] [place] [address] Care Team Providers Care Broadcast Meteorologist Name Role Phone Aline Neville MD Primary Care Pro vider Encounter Details Date Type Department Care Team (Late st Contact Info) Description 04/15/2025 Telephone [facility] [address] [place], [place] [phone] Eden Le [place] Social History Tobacco Use Types Packs/Day Years [...] encounter Miscellaneous Notes * Telephone Encounter - Eden Le [place] - 04/15/2025 1:53 PM EST Chart Prep Labs: not applicable Images: not applicable Referrals: not applicable Vaccines due: Covid, Flu, PCV20, Hep B, and HPV Screenings: not applicable Overdue care gaps: Disability screen documented in this encounter Plan of Treatment Not on file documented as of this encounter Visit Diagnoses Not on filedocumented in this encounter Additional Health Concerns Assessment Noted Time PHQ-9 Depression Total Score: 0 08/14/19 25 10:36 AM EDT documented as of this encounter Care Teams Broadcast Meteorologist Relationship Specialty Start Date End Date Aline Neville MD [address] [place] [phone] PCP - General Internal Medicine 01/23/24 documented as of this encounter
--- OUTSIDE RECORDS SUMMARY | 2025-04-16 19:14 | XMS_ITS | Encounter Summary ---
Author Organization [employer] Address [address] [facility] [address] [place] [address] Care Team Providers Care Fine Arts Model Name Role Phone Aline Neville MD Primary Care Pro vider Encounter Details Date Type Department Care Team (Late st Contact Info) Description 04/16/2025 Results Follow-Up [facility] [address], [place] [phone] Kathya Nguyen, DOTTIE [address] [place] [address] Chlamydia/N. Gonorrhoeae RNA, TMA, Vagina Social History Tobacco Use Types Packs/Day Years [...] as of this encounter Miscellaneous Notes * Result Encounter Note - Kathya Nguyen CNM - 04/16/2025 4:23 PM EST Please let Nury know her Gonorrhea/Chlamydia tests were negative. Thanks! documented in this encounter Plan of Treatment Not on file documented as of this encounter Visit Diagnoses Not on filedocumented in this encounter Additional Health Concerns Assessment Noted Time PHQ-9 Depression Total Score: 0 08/14/19 25 10:36 AM EDT documented as of this encounter Care Teams Fine Arts Model Relationship Specialty Start Date End Date Aline Neville MD [address] [place] [phone] PCP - General Internal Medicine 01/23/24 documented as of this encounter
--- OUTSIDE RECORDS SUMMARY | 2025-04-16 19:15 | XMS_ITS | Clinical Summary ---
Author Organization [employer] Address [address] [place] [address] [address] [place] [address] Care Team Providers Care Wool Hanker Name Role Phone Aline Neville MD Primary Care Pro vider Allergies No known active allergies Medications * This document contains information received from the source organization and may not represent a complete record from that organization. sucralfate (Carafate) 1 g tablet TAKE 1 TABLET BY MOUTH FOUR TIMES DAILY, BEFORE BREAKFAST, BEFORE LUNCH, BEFORE SUPPER AND AT BEDTIME 30 tablet 1 03/18/20 24 Active pyridoxine (Vitamin B-6) 25 MG tablet One tablet every 8 hours as needed for nausea/vomiti ng 90 tablet 04/18/20 24 Active clotrimazole (Lotrimin) 1 % vaginal cream Insert 1 applicator into the vagina in the evening for 7 days. 45 g 5 10:41 AM EST 04/16/20 25 025 Active Vit-Fe Fumarate-FA ( Plus) 27-1 MG tablet One tablet by mouth daily 90 tablet 3 5 10:41 AM EST 04/16/20 25 Active Vit-Fe Fumarate-FA ( Plus) 27-1 MG tablet One tablet by mouth daily 90 tablet 1 03/08/20 24 025 Discontinued(Re order (will not trigger notification to Pharmacy)) Hospital, Clinic, or Other Facility Administered Medication Ordered Dose Route Frequency Start Date End Date Status lidocaine (Xylocaine) 2 % injection 20 mgIndications:Benign nevus 20 mg IJ Once 04/26/2024 Active Active Problems Problem Noted Date Diagnosed Date 03/10/2024 Chlamydia infection 03/10/2024 Acculturation difficulty 01/16/2024 Lives in homeless prison 01/16/2024 Preventative health care 01/06/2024 Skin lesions 01/06/2024 Resolved Problems Problem Noted Date Diagnosed Date Resolved Date Adjustment disorder with depressed mood 01/06/2024 01/16/2024 Encounters Date Type Department Care Team Description 04/16/2025 9:15 AM EST Office Visit [address] [address] Kathya Nguyen CNM Lupe vaginitis (Primary Dx); Screening examination for venereal disease 04/16/2025 Results Follow-Up [address] [address] Kathya Nguyen CNM Chlamydia/N. Gonorrhoeae RNA, TMA, Vagina 04/16/2025 Travel 04/15/2025 Telephone [facility] [address] [place] [phone] [place] Le [place] 04/09/2025 Patient Outreach [address] [address] Aline Neville MD Care Coordination ([facility] outreach for SDOH PT-1 and food needs-no answer, LVM ) 04/09/[address] [address] Aline Neville MD pt1 04/02/2025 Patient Outreach [address] [address] Aline Neville MD Care Management ([facility] TC #2-lvm) 03/07/2025 Patient Outreach [address] [address] Aline Neville MD Care Management ([facility] TC #1-lvm) 02/06/2025 Patient Outreach [address] [address] Aline Neville MD Care Coordination ([facility]- Follow up-Graduated) 02/06/2025 Patient Outreach [address] [address] Aline Neville MD Care Management ([facility] follow up call) 01/30/2025 Patient Outreach [facility] [address] [place] [address] Aline Neville MD 01/24/2025 Patient Outreach [facility] [address] [place] [address] Aline Neville MD Care Coordination ([facility]#1- Follow up call-LV) 01/22/2025 Telephone [facility] [address] [place] [address] Eden Le [place] from Last 3 Months Immunizations Immunization Administration Dates Next Due HPV 9-Valent 03/07/2024,02/05/2024 Tdap 08/30/2024,01/05/2024 Family History Medical History Relation Name Comments Coronary artery disease Maternal Grandfather Breast cancer Neg Hx Colon cancer Neg Hx Ovarian cancer Neg Hx Relation Name Status Comments Maternal Grandfather Social [...] (152 lb) 04/16/2025 9:29 AM EST Height 165.1 cm (5' 5 ) 04/26/2024 9:26 AM EST Body Mass Index 25.29 04/26/2024 9:26 AM EST Plan of Treatment Health Maintenance Due Date Last Done Comments Dental Oral Exam 1996 Dental Prophylaxis 1996 Dental X-Ray: Bitewings 1996 Dental X-Ray: Full Mouth 1996 Disability Screening 1996 Hepatitis B Vaccines (1 of 3 - 19+ 3-dose series) 2015 Pneumococcal Vaccine: Pediatrics (0 to 5 Years) and At-Risk Patients (6 to 49) Years (1 of 2 - PCV) 2015 HPV Vaccines (3 - 3-dose series) 08/05/2024 03/07/2024, 02/05/2024 COVID-19 Vaccine ( - 2024-2 6 season) 2024 Influenza Vaccine (#1) 2024 SDOH Screening 07/19/2025 07/19/2024 Alcohol/Substance Use Screening 08/13/2025 08/13/2024 Depression Screening 10/23/2025 10/23/2024, 08/13/2024 Family Planning (PISQ) 04/16/2026 04/16/2025 Tobacco Screening 04/16/2026 04/16/2025 Pap Smear 01/22/2027 01/23/2024 DTaP/Tdap/Td Vaccines (3 [...] 04/16/2025 10 :04 AM EST Lupe vaginitis HEPATITIS C AB W/REFL TO HCV RNA, QN, PCR Routine 03/05/2024 9:35 AM EST Annual physical exam HIV 1/2 ANTIGEN/ANTIBODY, FOURTH GENERATION W/RFL Routine 03/05/2024 9:35 AM EST Annual physical exam [employer] PAP Routine 01/23/2024 11:13 AM EDT Cervical cancer screening from Last 3 Months or Most Recently Relevant to Health Maintenance Results * Chlamydia/N. Gonorrhoeae RNA, TMA, Vagina (04/16/2025 10:10 AM EST) CT PCR NOT DETECTED Not Detect. [facility] Comment:A not detected test result does [...] psychologicalconsequences. NG PCR NOT DETECTED Not Detect. [facility] Comment:A not detected test result does [...] EST 04/16/2025 2:25 PM EST Kathya Nguyen [facility] LAB MICROBIOLOGY - GENERA L ORDERABLES Final Result Performing Organization Address [facility] Co de Phone Number [facility] [address] [place] [phone] * POCT fern test, vaginal fluid manually resulted (04/16/2025 10:04 AM EST) Pathologist [facility] Prep Positive Comment:pH 4.5, neg whiff, n eg clue, neg trich, few wbc, pos hyphae Vaginal Fluid Vaginal structure / Unknown 04/16/2025 10:04 AM EST Kathya Nguyen [facility] POINT OF CARE TEST ENTER/ EDIT ORDERABLES Final Result * Hepatitis C Antibody with Reflex to HCV, RNA, Quantitative, Real-Time PCR (03/05/2024 9:35 AM EST) [facility] Hepatitis C Antibody GRAYZONE Nonreactive [facility] Comment:Antibodies to HCV ma y or may not be present. Suggest repeatanti-HCV in 4-6 weeks and/or HCV viral load if clinicallyindicated. Blood Venous blood specimen / Unknown 03/05/2024 9:35 AM EST 03/05/2024 11:22 AM EST Aline Eddy MD LAB BLOOD ORDERAB LES Final Result Performing Organization Address [facility] Co de Phone Number [facility] [address] [place] [phone] * HIV-1/2 Antigen and Antibodies, Fourth Generation, with Reflexes (03/05/2024 9:35 AM EST) [facility] HIV AB/AG Nonreactive Nonreactive [facility] Comment:HIV-1 p24 Ag and/or HIV-1/HIV-2 Ab not detected.A test result that is nonreactive does not exclude thepossibility of exposure to or infection with HIV-1 and/orHIV-2. Nonreactive results in this assay for individualswith prior exposure to HIV-1 and/or HIV-2 may be due toantigen and antibody levels that are below the limit ofdetection of this assay.[employer] HIV Ag/Ab Combo assay result andsupplemental assay results should be interpreted inconjunction with the patient's clinical presentation,history and other laboratory results. If the results areinconsistent with clinical evidence, additional testing issuggested to confirm the result. Blood Venous blood specimen / Unknown 03/05/2024 9:35 AM EST 03/05/2024 11:22 AM EST us Aline Eddy MD LAB BLOOD ORDERAB LES Final Result [facility] [address] [place] [address] [phone] * Pap Smear (01/23/2024 11:13 AM EDT) SOURCE: SEE NOTE [facility] Comment:None given Report Status: [facility] Clinical Information: SEE NOTE [facility] Comment:None given LMP: SEE NOTE [facility] Comment:NONE GIVEN Prev. PAP: SEE NOTE [facility] Comment:NONE GIVEN Prev. BX: SEE NOTE [facility] Comment:NONE GIVEN Statement Of Adequacy: SEE NOTE [facility] Comment:Satisfactory for dimitri luation.Endocervical/transformation zone componentpresent. General Categorization: [facility] Interpretation/Result: SEE NOTE [facility] Comment:Cytology Results: Ne gative for intraepitheliallesion or malignancy. Cytology Comment SEE NOTE [facility] Comment:This Pap test has be en evaluated with computerassisted technology. Leak Inspector: SEE NOTE [facility] Comment:YP, CT(ASCP)CT darnell sharma location: [address] [address] Review Leak Inspector: [facility] Pathologist [facility] PAP Infection SEE NOTE [facility] Comment:Shift in vaginal jojo ra suggestive of bacterialvaginosis. See Note SEE NOTE [facility] Comment:EXPLANATORY NOTE:The Pap is a screening test for cervical cancer. It isnot a diagnostic test and is subject to false negativeand false positive results. It is most reliable when asatisfactory sample, regularly obtained, is submittedwith relevant clinical findings and history, and whenthe Pap result is evaluated along with historic andcurrent clinical information.THIS TEST WAS PERFORMED AT:[facility] [place] [phone] HAGEN MD Pap Vial Vaginal structure / Unknown 01/23/2024 11:13 AM EDT 01/23/2024 5:58 PM EDT Narrative [facility] - 01/26/2024 12:50 PM EDT SEE SCANNED RESULTS IN EMR Kathya Nguyen CNM LAB PATHOLOGY ORDERABLES Final Result [facility] [address] [place] [phone] from Last 3 Months or Most Recently Relevant to Health Maintenance Insurance Topic C3 Topic C3 [facility] AD[facility] Care Teams Wool Hanker Relationship Specialty Start Date End Date Aline Neville MD [address] [place] [phone] PCP - General Internal Medicine 01/23/24
--- OUTSIDE RECORDS SUMMARY | 2025-04-16 19:15 | XMS_ITS ---
Author Organization [facility] Address [address] [place] [address] 7 [place] [address] Care Team Providers Care Infusion Rn Name Role Phone Aline Neville MD Primary Care Pro vider C3 CM High Risk Maternity Status:Enrolled (Active) Start date:07/17/2024 Enrollment date:08/13/2024 Enrollment reason:Risk Strat Overview HRM- Risk Strat Case Team Name Relationship Phone Mily Sheffield(Responsible Staff) Registered Nurse [phone] Continued Care and Services Coordination
== END 2025-04-16 14:25 | disposition home or self-care (01) ==
LOC: HO.LNP 14:24
PROVIDERS: Visit Provider Advanced Practice Midwife
DX: Z20.2 Contact with and (suspected) exposure to infections with a predominantly sexual mode of transmission (principal)
CPT/HCPCS: 87491; 87591